=== PATIENT | female | born 1930 | race Caucasian/White ===

== ENCOUNTER 2017-12-03 16:33 | Inpatient (IN) ==
[2017-12-02 11:50] VITALS: BMI 26.6
--- NOTE | 2017-12-02 12:09 | XRay Report ---
EXAM: XR chest 2V COMPARISON: Chest x-ray dated 07/21/2016. HISTORY: chf,hypoxia,cad . FINDINGS: The articular opacities throughout both lung wilson which appear partially confluent on the right. There is no pneumothorax or sizable pleural effusion. The cardiac silhouette is stable. Redemonstration of postsurgical changes overlying the mediastinum. IMPRESSION: Diffuse pulmonary vascular congestion with superimposed atelectasis versus pneumonia within the right mid lung. .
[2017-12-02] MEDS: BUMETANIDE 2.5mg/10ml INJECTION IVP SCH ×2 (15:24→21:37)
[2017-12-02] MEDS: RANITIDINE 150 MG TABLET PO SCH (20:19)
[2017-12-02] MEDS: NAPROXEN 500 MG TABLET PO SCH (21:34)
[2017-12-02] MEDS: AMITRIPTYLINE 10 MG TABLET PO SCH (21:37)
[2017-12-02] MEDS: ATORVASTATIN 40 MG TABLET PO SCH (21:37)
[2017-12-02] MEDS: CEFEPIME 1 GM in NS 100 ML IV SCH (23:59)
[2017-12-03] MEDS: BUMETANIDE 2.5mg/10ml INJECTION IVP SCH ×3 (05:00→21:18)
[2017-12-03] MEDS: PANTOPRAZOLE 40 MG TABLET PO SCH (05:33)
--- NOTE | 2017-12-03 08:04 | XRay Report ---
Indication: CHF vs pneumonia XR chest 2V: Comparison: 12/02/2017 Technique: PA and lateral chest Findings: Patient continues to show patchy infiltrative changes bilaterally but more significantly to the right side. Heart remains prominent with previous cardiac surgery. No significant effusions are identified. Impression: 1. Mild cardiomegaly persists. Postoperative changes of previous cardiac surgery are identified. 2. Similar patchy infiltrative changes particularly involving the right chest probably representing underlying inflammatory or infectious etiology. 3. Follow-up after aggressive medical treatment recommended to make certain findings appropriately clear. .
[2017-12-03] MEDS: ALBUTEROL/IPRATROPIUM 2.5mg-0.5mg/3ml NEB AEROSOL SCH ×4 (08:13→18:49)
[2017-12-03] MEDS: RANITIDINE 150 MG TABLET PO SCH ×2 (08:29→18:20)
[2017-12-03] MEDS: AMIODARONE 200 MG TABLET PO SCH (08:32)
[2017-12-03] MEDS: NAPROXEN 500 MG TABLET PO SCH ×2 (08:33→18:22)
[2017-12-03] MEDS: CEFEPIME 1 GM in NS 100 ML IV SCH ×3 (08:41→23:33)
--- NOTE | 2017-12-03 14:56 | CT Scan Report ---
Indication: SOB with hypoxia, Right sided infiltrate CT chest w con: Comparison: Chest chest film earlier in the day Technique: Patient scanned from above the thoracic inlet to below the diaphragms after intravenous administration of 85 cc Omni 300 intravenous contrast with dose reduction imaging technology and reformatted sagittal and coronal image planes. Findings: Patient shows significant cardiac enlargement and bilateral pleural effusions and some central vascular congestion. Arteriosclerotic changes are seen in the coronary arteries. Prior cardiac surgery changes are appreciated. Patient shows extensive patchy infiltrative changes and both interstitial and alveolar edematous changes are suspected as well as possible superimposed pneumonic infiltrate in the right lower lobe and possibly in the right upper lobe for patient showed the most prominent areas of pulmonary interstitial density. Reformatted imaging of the spine showed mild rotoscoliosis but no acute fractures. Impression: 1. Patient showed combination of both underlying congestive changes with an enlarged heart and bilateral pleural effusions and increased interstitial markings as well as possible superimposed pneumonic infiltrates particularly prominent in the right base and to some extent in the right upper chest. 2. Aggressive diuretic therapy is suggested and whatever infiltrative changes persist after the patient's the heart failure is cleared would represent most likely infectious etiology. 3. Findings are discussed with ordering clinician when study provided. .
[~2017-12-03 16:33] MED LIST: CEFEPIME 2 GM in NS 100 ML IV ONE; CLOPIDOGREL 75 MG TABLET PO SCH; IOHEXOL 300mg/ml 75ml INJECTION ONE; NAPROXEN 500 MG TABLET PO PRN; NS FLUSH BAG 500ml IV PRN; SALINE FLUSH 10ml SYRINGE ONE
--- NOTE | 2017-12-03 16:33 | Internal Med Progress Note ---
Internal Medicine Subjective Patient seen and examined in her room. Questions answered. I reviewed her chest CT with the radiologist earlier today. She states that her breathing is no better from the time of admission. She has been on 2 mg of Bumex every 8 hours. I also started her on empiric antibiotics for community-acquired pneumonia. She is unable to keep her O2 sat above 86% on room air without activity. She denies chest pain and she is able to lie flat this afternoon to rest. No bowel movement since admission and she has mild abdominal discomfort. Exam Vital Signs: Temperature 97.1 F 12/03/17 16:00 Pulse Rate 81 12/03/17 15:28 Respiratory Rate 16 12/03/17 15:28 Blood Pressure 126/55 12/03/17 15:28 Pulse Oximetry 92 12/03/17 15:28 Telemetry Rhythm: Sinus Rhythm Height/Weight/BMI: Height 5 ft 7 in Weight 75.4 kg Body Mass Index 26.6 - Constitutional Present: mild distress, cooperative - Routine HEENT Exam Head: Present: normocephalic, atraumatic Eye: Present: EOMI, PERRL, conjunctivae pink. Absent: conjunctival icterus, scleral injection ENT: Present: mucous membranes moist, oropharynx clear, nares patent - Routine Neck Exam Present: supple, JVD. Absent: carotid bruit, lymphadenopathy, thyromegaly - Routine Chest/Breast/Axilla Exam Chest wall: Absent: tenderness Axillae: Absent: lymphadenopathy - Routine Respiratory Exam Present: dyspnea, rales (bilaterally). Absent: rhonchi, stridor - Routine Cardiovascular Exam Present: RRR, no murmur. Absent: S3, S4 - Routine Abdominal Exam Present: soft, tenderness, distended (mild) - Routine Extremities Exam Absent: cyanosis, clubbing, edema - Routine Skin Exam Present: intact. Absent: cyanosis, erythema, pallor, mottling, petechiae, urticaria, jaundice - Routine Neurological Exam Present: alert, oriented X3, CN II-XII intact - Routine Psychiatric Exam Present: normal affect, normal thought process, cooperative, good insight, good judgment. Absent: depressed, anxious Internal Medicine Results - Labs CBC & Chem 7: 12/03/17 04:24 12/03/17 04:24 Labs: Short CBC 12/03/17 Range/Units 04:24 WBC 15.8 H (4.5-11.0) T/MM3 Hgb 8.9 L (12-16) GM/DL Hct 28.2 L (36-46) % Plt Count 332 (130-400) T/MM3 BMP 12/03/17 04:24 Sodium 139 Potassium 4.2 Chloride 103 Carbon Dioxide 28 BUN 31.0 H Creatinine 1.1 Glucose 88 Calcium 8.4 Liver Function 12/03/17 Range/Units 04:24 Albumin 2.9 L (3.5-5.0) g/dL Urine 12/02/17 Range/Units 17:14 Urine Color Yellow (YELLOW) Urine Clarity Clear Urine pH 5.5 (5.0-8.0) Ur Specific [place] <=1.005 L (1.015-1.025) Urine Protein Negative (NEGATIVE) Urine Glucose (UA) Negative (NEGATIVE) - Imaging and Cardiology Chest x-ray Status: image reviewed by me CT scan - chest Status: image reviewed by me Progress Note-A&P - Time Spent With Patient Total time spent is greater than 50% in coordination of care (as documented) at patient's floor/unit and/or counseling patient: greater than 35 minutes (1) Respiratory distress, acute Status: Acute Current Visit: Yes (2) Hypoxia Status: Acute Current Visit: Yes (3) Acute on chronic congestive heart failure Status: Acute Current Visit: Yes (4) Pleural effusion Status: Acute Current Visit: Yes (5) Leukocytosis Status: Acute Current Visit: Yes (6) Coronary artery disease Status: Chronic Current Visit: Yes (7) Hypertension Status: Chronic Current Visit: Yes - Assessment and Plan Continue diuresis and IV antibiotics. She will probably need home oxygen as well as a nebulizer with medications on discharge. Hospital Course Summary Disclaimer: The visit summary below is not to be considered part of the above Progress Note.
[2017-12-03] MEDS ORDERED: CLOPIDOGREL 75 MG TABLET PO SCH (17:30)
[2017-12-03] MEDS: CLOPIDOGREL 75 MG TABLET PO SCH (18:21)
[2017-12-03] MEDS: AMITRIPTYLINE 10 MG TABLET PO SCH (21:18)
[2017-12-03] MEDS: ATORVASTATIN 40 MG TABLET PO SCH (21:18)
[2017-12-04] MEDS: BUMETANIDE 2.5mg/10ml INJECTION IVP SCH ×3 (04:53→21:15)
[2017-12-04] MEDS: PANTOPRAZOLE 40 MG TABLET PO SCH (06:10)
[2017-12-04] MEDS: ALBUTEROL/IPRATROPIUM 2.5mg-0.5mg/3ml NEB AEROSOL SCH ×4 (08:16→22:37)
[2017-12-04] MEDS: RANITIDINE 150 MG TABLET PO SCH ×2 (09:21→17:25)
[2017-12-04] MEDS: AMIODARONE 200 MG TABLET PO SCH (09:21)
[2017-12-04] MEDS: NAPROXEN 500 MG TABLET PO SCH ×2 (09:21→17:25)
[2017-12-04] MEDS: CEFEPIME 1 GM in NS 100 ML IV SCH ×2 (09:22→17:24)
--- NOTE | 2017-12-04 09:22 | XRay Report ---
Indication: CHF, right sided infiltrate Procedure: XR chest 2V: Encounter: Subsequent Comparison: Chest CT in radiographs of the previous day Technique: PA and lateral radiographs of the chest were obtained. Findings: Lungs and airways: Normal lung volumes. Mildly improved but persistent heterogeneous right greater than left pulmonary airspace consolidation. Pulmonary vasculature appears normal within the relatively clear left upper lung zone. Pleura: No obvious pleural effusion or pneumothorax. Heart and mediastinum: The cardiomediastinal silhouette and great vessels appear unchanged Osseous structures and soft tissues: No acute osseous abnormality is seen. Postoperative changes of median sternotomy. Impression: Mildly improved but persistent heterogeneous right greater than left pulmonary airspace consolidation. .
--- NOTE | 2017-12-04 17:06 | Internal Med Progress Note ---
Internal Medicine Subjective Patient seen and examined in her room. Questions answered. Michelle states that her breathing is probably worse today. Respiratory therapy attempted to have her ambulate in the jules and she did not do very well. She is still on oxygen and requiring in order to stay above 90% SaO2. Her chest x-ray appears mildly improved. Her white count is down a little bit more today. She does have chest pain with deep inspiration. Exam Vital Signs: Temperature 97.7 F 12/04/17 16:05 Pulse Rate 79 12/04/17 16:05 Respiratory Rate 18 12/04/17 16:05 Blood Pressure 132/66 12/04/17 16:05 Pulse Oximetry 93 12/04/17 16:05 Telemetry Rhythm: Sinus Rhythm Height/Weight/BMI: Height 5 ft 7 in Weight 74.5 kg Body Mass Index 26.6 - Constitutional Present: mild distress, cooperative - Routine HEENT Exam Head: Present: normocephalic, atraumatic Eye: Present: EOMI, PERRL, conjunctivae pink. Absent: conjunctival icterus, scleral injection ENT: Present: mucous membranes moist, oropharynx clear, nares patent - Routine Neck Exam Present: supple, JVD. Absent: lymphadenopathy, thyromegaly - Routine Chest/Breast/Axilla Exam Axillae: Absent: lymphadenopathy - Routine Respiratory Exam Present: accessory muscle use, dyspnea, rales (throughout) - Routine Cardiovascular Exam Present: RRR, no murmur. Absent: S3, S4 - Routine Abdominal Exam Present: soft, tenderness (right-sided), distended (mildly) - Routine Extremities Exam Absent: cyanosis, clubbing, edema - Routine Skin Exam Present: intact, pallor. Absent: erythema, mottling, petechiae, urticaria, jaundice - Routine Neurological Exam Present: alert, oriented X3, CN II-XII intact - Routine Psychiatric Exam Present: cooperative, good insight, good judgment, depressed Internal Medicine Results - Labs CBC & Chem 7: 12/04/17 04:42 12/04/17 04:42 Labs: Short CBC 12/04/17 Range/Units 04:42 WBC 14.5 H (4.5-11.0) T/MM3 Hgb 8.4 L (12-16) GM/DL Hct 26.9 L (36-46) % Plt Count 322 (130-400) T/MM3 BMP 12/04/17 04:42 Sodium 142 Potassium 4.7 Chloride 107 Carbon Dioxide 28 BUN 32.0 H Creatinine 1.2 Glucose 95 Calcium 8.7 Liver Function 12/04/17 Range/Units 04:42 Total Bilirubin 0.30 (0.20-1.30) MG/DL AST 29 (14-36) U/L ALT 26 (1-35) U/L Alkaline Phosphatase 142 H (38-126) U/L Albumin 2.8 L (3.5-5.0) g/dL - Imaging and Cardiology Chest x-ray Status: image reviewed by me Progress Note-A&P - Time Spent With Patient Total time spent is greater than 50% in coordination of care (as documented) at patient's floor/unit and/or counseling patient: greater than 35 minutes (1) Respiratory distress, acute Status: Acute Assessment and plan: No improvement. 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 Current Visit: Yes (3) Acute on chronic congestive heart failure Status: Acute Current Visit: Yes (4) Pleural effusion Status: Acute Current Visit: Yes (5) Leukocytosis Status: Acute Assessment and plan: Slowly improving Current Visit: Yes (6) Coronary artery disease Status: Chronic Current Visit: Yes (7) Hypertension Status: Chronic Current Visit: Yes (8) Anemia Status: Acute Assessment and plan: Consider transfusion Current Visit: Yes - Assessment and Plan Cardiology consult with Dr. Madeline Mendez including echocardiogram. I will start Solu-Medrol as well. Hospital Course Summary Disclaimer: The visit summary below is not to be considered part of the above Progress Note.
[2017-12-04] MEDS: CLOPIDOGREL 75 MG TABLET PO SCH (17:25)
[2017-12-04] MEDS: METHYLPREDNISOLONE SOD SUCC 125mg/2ml INJECTION IVP SCH ×2 (18:20→21:15)
[2017-12-04] MEDS: ATORVASTATIN 40 MG TABLET PO SCH (21:15)
[2017-12-04] MEDS: AMITRIPTYLINE 10 MG TABLET PO SCH (21:15)
[2017-12-05] MEDS: CEFEPIME 1 GM in NS 100 ML IV SCH ×3 (00:24→16:00)
--- NOTE | 2017-12-05 00:28 | Cardiology Consult Note ---
<Ana Humphries - Last Filed: 12/05/17 00:32> History of Present Illness Requesting physician: Javad Orozco Consult reason: chest pain, shortness of breath Chief complaint: chest pain and SOB History of present illness: This is an 87 year old patient known to Dr. Whaley with a history of CAD, Hx CABG in 1997, and stents after CABG. She had a heart cath [address] Emmanuel at [facility] and told she had 50% stenosis in 1 vessel that was unchanged from prior heart cath. In 07/2016 she fell and fractured hip and went into A-fib - new onset and started on amiodarone and Xarelto. She stopped taking Xarelto due to cost after her month of samples ran out and she restarted Plavix and ASA. She understands it is not effective to prevent stroke for A- fib. She also does not think she has been back in A-fib. She has cont to take Amiodarone and 11/2016 PFT was normal. Metoprolol was stopped at one time and when she was restarted on metoprolol her heart quit acting up. Additional history includes HTN, scoliosis s/p 2016 back surgery, hip fx s/p 2017 hip surgery; chronic back and hip pain on fenanyl patch, walks with a walker. fluid overload and been on torsemide for a while. The torsemide was decreased from 40mg to 20mg a while back due to [place], but when her SOB and swelling in legs and weight increased the torsemide increased back to 40mg daily. For the last 2 weeks she has experienced increasing SOB, PRADO, swelling in legs and weight gain of 7#. She could hardly make it to the bathroom due to SOB. When she would sit down and take deep breaths, she felt chest tightness around her chest. no radiation, some nausea at times. no diaphoresis. the chest tightness subsides after she catches her breath. She does not wear O2 at home. On 12/02/[address] Diaz and and due to her severe SOB with hypoxia, she was admitted to [facility]. She thought her SOB was due to her chronic pain issues and scoliosis. She is sad about her condition. She is a good historian. Review of Systems - Constitutional Constitutional: Present: fatigue, weakness, weight gain, other (constant pain all over. ). Absent: chills, fever(s) - EENMT Eyes: Absent: change in vision Balance: Present: other (unsteady gait due to back pain and scoliosis) Mouth/Throat: Absent: sore throat - Cardiovascular Cardiovascular: Present: chest pain (tightness around chest with deep breaths. ) , dyspnea on exertion (severe), edema (some per pt. not presently. ). Absent: palpitations, syncope, orthopnea Vascular: Absent: pedal edema, varicosities - Respiratory Respiratory: Present: dyspnea, dyspnea on exertion, pain on inspiration. Absent : cough, hemoptysis - Gastrointestinal Gastrointestinal: Present: nausea (occassional ). Absent: vomiting - Musculoskeletal Musculoskeletal: Present: back pain, deformity, limited range of motion, muscle weakness - Integumentary/Breasts Integumentary: Absent: rash - Neurological Neurological: Present: abnormal gait, weakness. Absent: dizziness - Psychiatric Psychiatric: Present: depression. Absent: anxiety - Endocrine Endocrine: Absent: palpitations - Hematologic/Lymphatic Hematologic/Lymphatic: Absent: easy bleeding PFSH Patient Stated Medical History Cataracts Yes Hearing Loss Yes Macular Degeneration Yes: tiny start Cardiac Arrhythmia Yes: A-fib Congestive Heart Failure Yes Hypertension Yes Hypotension Yes Gastroesophageal Reflux Yes: little Disease Ulcer Yes: past Hx Incontinence Yes Hx Renal Disease No Osteoarthritis Yes CAD Hx CABG 1997 Surgical History: CABG in 1997 and coronary stents after. Family History: Mother - colon cancer Sibling - heart disease - Social History Smoking status: Never smoker second hand exposure: Yes (for many years. ) Substance use type: does not use Alcohol intake frequency: does not drink Housing: house Household members: other (spouse in long term due to dementia and stroke. ) Current occupational status: retired Does patient use chewing tobacco?: No Current residence: Apartment/Private Home Medications Home Medications Medication Instructions Recorded Confirmed Type Atorvastatin [Lipitor] 40 mg PO DAILY #0 08/21/11 12/02/17 History Calcium Carb/Magnesium Oxid/D3 2 tab PO DAILY #0 08/21/11 12/02/17 History [Calcium Magnesium + D Tablet] Ubidecarenone [Co Q-10] 200 mg PO DAILY #0 08/21/11 12/02/17 History Vitamin B Complex 1 cap PO DAILY #0 08/21/11 12/02/17 History Pantoprazole Sodium 40 mg PO DAILY #0 02/11/17 06/25/18 History raNITIdine HCl [Zantac] 150 mg PO BID #0 07/21/16 12/02/17 History fentaNYL [Fentanyl] 1 patch TOP Q3D 30 Days #10 patch 07/25/16 12/02/17 Rx Docusate Sodium [Colace] 1 cap PO BID #0 cap 07/26/16 12/02/17 History Amitriptyline HCl 10 mg PO HS 30 Days #30 tab 08/08/16 12/02/17 Rx Metoprolol Tartrate 25 mg PO BIDWM #60 tab 08/08/16 12/02/17 Rx fentaNYL [Fentanyl] 1 removal TD Q3D #30 08/08/16 12/02/17 Rx Potassium Chloride [Klor-Con M10] 20 meq PO DAILY #60 tab.er.prt 12/09/17 Rx PredniSONE [Deltasone 20 mg] 40 mg PO WB #25 tab 12/09/17 Rx Torsemide [Demadex] 20 mg PO DAILY #30 tab 12/09/17 Rx Allergies Allergy/AdvReac Type Severity Reaction Status Date / Time hydrocodone Allergy Intermediate HIVES Verified 12/02/17 12:29 oxycodone Allergy Intermediate HIVES Verified 12/02/17 12:29 tramadol Allergy Intermediate HIVES Verified 12/02/17 12:29 acetaminophen Allergy Mild HIVES Verified 12/02/17 12:29 Exam Vital signs: Temperature 97.7 F 12/04/17 23:25 Pulse Rate 82 12/04/17 23:25 Respiratory Rate 18 12/04/17 23:25 Blood Pressure 146/59 H 12/04/17 23:25 Pulse Oximetry 91 12/04/17 23:25 - Constitutional no acute distress, well nourished, well developed, cooperative - Routine HEENT Exam Head: Present: normocephalic, atraumatic Eye: Present: normal accommodation, conjunctivae pink ENT: Present: mucous membranes moist - Routine Neck Exam Absent: JVD, carotid bruit - Routine Chest/Breast/Axilla Exam Chest wall: Absent: tenderness - Routine Respiratory Exam Present: crackles (right side) Comments: no SOB while lying flat in bed. - Routine Cardiovascular Exam Present: RRR, murmur (06/15) - Routine Abdominal Exam Present: soft, normoactive bowel sounds, non tender - Routine Extremities Exam Present: no edema, pulses intact - Routine Back/Spine/Pelvis Exam Back/Spine: Present: scoliosis, pain with rotation - Routine Skin Exam Present: intact, dry, warm, normal turgor - Routine Neurological Exam Present: alert, oriented X3, moving all extremities, vision grossly intact, hearing grossly intact - Routine Psychiatric Exam Present: normal affect, normal thought process, cooperative, good insight, good judgment Results 12/04/17 04:42 12/04/17 04:42 Laboratory Last Values WBC 14.5 T/MM3 (4.5-11.0) H 12/04/17 04:42 RBC 3.07 M/MM3 (4.00-5.20) L 12/04/17 04:42 Hgb 8.4 GM/DL (12-16) L 12/04/17 04:42 Hct 26.9 % (36-46) L 12/04/17 04:42 MCV 87.6 UM3 (80-100) 12/04/17 04:42 MCH 27.4 UUG (26-34) 12/04/17 04:42 MCHC 31.2 GM/DL (31-37) 12/04/17 04:42 RDW Std Deviation 45.1 FL (36.9-50.2) 12/04/17 04:42 Plt Count 322 T/MM3 (130-400) 12/04/17 04:42 MPV 8.9 UM3 (9.4-12.4) L 12/04/17 04:42 Immature Gran % (Auto) 0.4 % (0.0-0.5) 12/04/17 04:42 Neut % (Auto) 76.1 % (33-66) H 12/04/17 04:42 Lymph % (Auto) 6.4 % (23-45) L 12/04/17 04:42 Perkins % (Auto) 7.6 % (0-9.0) 12/04/17 04:42 Eos % (Auto) 9.3 % (0-4) H 12/04/17 04:42 Baso % (Auto) 0.2 % (0-2) 12/04/17 04:42 Neut # (Auto) 11.0 T/MM3 (1.8-7.7) H 12/04/17 04:42 Lymph # (Auto) 0.9 T/MM3 (1-4.8) L 12/04/17 04:42 Perkins # (Auto) 1.1 T/MM3 (0-0.8) H 12/04/17 04:42 Eos # (Auto) 1.4 T/MM3 (0-0.5) H 12/04/17 04:42 Baso # (Auto) 0.0 T/MM3 (0-0.2) 12/04/17 04:42 Abs Immat Gran (auto) 0.06 T/MM3 (0.00-0.03) H 12/04/17 04:42 Neutrophils % (Manual) 75.0 % (33-66) H 12/03/17 04:24 Band Neutrophils % 1.0 % (0-6) 12/02/17 12:08 Lymphocytes % (Manual) 9.0 % (23-45) L 12/03/17 04:24 Monocytes % (Manual) 4.0 % (0-9.0) 12/03/17 04:24 Eosinophils % (Manual) 12.0 % (0-4) H 12/03/17 04:24 Neutrophils # (Manual) 11.9 T/MM3 (1.8-7.7) H 12/03/17 04:24 Band Neutrophils # 0.2 T/MM3 12/02/17 12:08 Lymphocytes # (Manual) 1.4 T/MM3 (1-4.8) 12/03/17 04:24 Monocytes # (Manual) 0.6 T/MM3 (0-0.8) 12/03/17 04:24 Eosinophils # (Manual) 1.9 T/MM3 (0-0.5) H 12/03/17 04:24 Hypochromasia 1+ 12/02/17 12:08 Ovalocytes 1+ 12/03/17 04:24 Helmet Cells 1+ 12/03/17 04:24 RBC Morph Comment Abnormal 12/03/17 04:24 Turbidity < 20 (0-20) 12/04/17 04:42 Sodium 142 MEQ/L (136-146) 12/04/17 04:42 Potassium 4.7 MEQ/L (3.6-5) 12/04/17 04:42 Chloride 107 MEQ/L (98-107) 12/04/17 04:42 Carbon Dioxide 28 MEQ/L (22-30) 12/04/17 04:42 Anion Gap 7 meq/L (5-15) 12/04/17 04:42 BUN 32.0 MG/DL (7-17) H 12/04/17 04:42 Creatinine 1.2 mg/dL (0.7-1.2) 12/04/17 04:42 GFR Calculation 42 12/04/17 04:42 BUN/Creatinine Ratio 27 RATIO (6-26) H 12/04/17 04:42 Glucose 95 MG/DL (65-110) 12/04/17 04:42 Calculated Osmolality 280 MOSM/KG (261-280) 12/04/17 04:42 Calcium 8.7 MG/DL (8.4-10.2) 12/04/17 04:42 Phosphorus 3.4 MG/DL (2.5-4.5) 12/03/17 04:24 Total Bilirubin 0.30 MG/DL (0.20-1.30) 12/04/17 04:42 Icterus Index < 2 (0-7) 12/04/17 04:42 AST 29 U/L (14-36) 12/04/17 04:42 ALT 26 U/L (1-35) 12/04/17 04:42 Alkaline Phosphatase 142 U/L (38-126) H 12/04/17 04:42 Troponin I < 0.012 ng/ml (0-0.12) 12/02/17 12:08 NT-Pro-B Natriuret Pep 43318 pg/mL (0-175) H 12/04/17 04:42 Total Protein 5.5 g/dL (6.3-8.2) L 12/04/17 04:42 Albumin 2.8 g/dL (3.5-5.0) L 12/04/17 04:42 Globulin 2.7 G/DL (2.4-3.6) 12/04/17 04:42 Albumin/Globulin Ratio 1.0 RATIO (1.1-2.2) L 12/04/17 04:42 TSH 1.16 mIU/L (0.47-4.68) 12/02/17 12:08 Specimen Hemolysis < 15 (0-25) 12/04/17 04:42 Ur Collection Type Urine, void-cc/notcc 12/02/17 17:14 Urine Color Yellow (YELLOW) 12/02/17 17:14 Urine Clarity Clear 12/02/17 17:14 Urine pH 5.5 (5.0-8.0) 12/02/17 17:14 Ur Specific Hope <=1.005 (1.015-1.025) L 12/02/17 17:14 Urine Protein Negative (NEGATIVE) 12/02/17 17:14 Urine Glucose (UA) Negative (NEGATIVE) 12/02/17 17:14 Urine Ketones Negative (NEGATIVE) 12/02/17 17:14 Urine Occult Blood Negative (NEGATIVE) 12/02/17 17:14 Urine Nitrate Negative (NEGATIVE) 12/02/17 17:14 Urine Bilirubin Negative (NEGATIVE) 12/02/17 17:14 Urine Urobilinogen 0.2 EU/DL (NORMAL) 12/02/17 17:14 Ur Leukocyte Esterase 1+ (NEGATIVE) A 12/02/17 17:14 Urine RBC None seen /HPF (0-3) 12/02/17 17:14 Urine WBC 20-30 /HPF (0-5) H 12/02/17 17:14 Urine Bacteria 2+ (NEGATIVE) H 12/02/17 17:14 Patient Weight 12/05/17 06:59 Weight 164 lb 3.91 oz - Imaging and Cardiology Echo: pending Imaging & Cardiology Narrative: Date of Exam: 12/04/17 Ordering Provider: Javad Orozco DO Type of Exam(s): XR chest 2V Reason for Exam(s): CHF, right sided infiltrate Indication: CHF, right sided infiltrate Findings: Lungs and airways: Normal lung volumes. Mildly improved but persistent heterogeneous right greater than left pulmonary airspace consolidation. Pulmonary vasculature appears normal within the relatively clear left upper lung zone. Pleura: No obvious pleural effusion or pneumothorax. Heart and mediastinum: The cardiomediastinal silhouette and great vessels appear unchanged Osseous structures and soft tissues: No acute osseous abnormality is seen. Postoperative changes of median sternotomy. Impression: Mildly improved but persistent heterogeneous right greater than left pulmonary airspace consolidation. - EKG Interpretation EKG: sinus rhythm (12/02/2017 ECG: SR, 1st AVB, possible septal infarct, age undetermined, mod IVCD. ) Assessment and Plan - Assessment and Plan (1) Acute on chronic congestive heart failure Status: Acute (2) Coronary artery disease Status: Chronic (3) Hypoxia Status: Acute (4) Pleural effusion Status: Acute (5) Leukocytosis Status: Acute (6) Hypertension Status: Chronic (7) Anemia Status: Acute (8) PAF (paroxysmal atrial fibrillation) Status: Chronic - Assessment and Plan A/C CHF: echo to determine type. - BNP: 76241 - CXR: right sided consolidation - symptoms: SOB, and worsening PRADO. no edema now. Laying flat in bed. - Receiving Bumex 2mg q 8hrs for good U/O. On 12/04 U/O was 2150. On 12/05 U /O 1400 so far. but cont to have SOB and PRADO. - Monitor I/O wts, lytes - ok and renal function - Cr and BUN ok. - likely due to pleural infiltrates. CAD Hx CABG - last heart cath: 50% CAD in 1 vessel per pt report. I will look up heart cath at and fax. - cont ASA and Plavix, unless we start anticoagulation for A-fib. Chest pain - tightness around chest with deep breaths after PRADO after walking. - ECG: no acute ischemia - 12/02 trop neg - check trop in am - unlikely cardiac. PAF - In SR since admit. - cont amiodarone. consider other anticoagulation - she does not have prescription insurance. can not afford Xarelto. HTN - cont metoprolol Leukocytosis - possible pneumonia, UTI. on ABX Acute resp distress and hypoxia - On 2LNC. started steroids per Dr. Diaz. DSLD - cont statin and CoQ10 Chronic back pain- cont pain meds per Dr. Diaz. Hospital Course Summary Disclaimer: The visit summary below is not to be considered part of the above Progress Note. <Gurwinder Whaley - Last Filed: 12/12/17 13:36> [facility] Patient Stated Medical History Cataracts Yes Hearing Loss Yes Macular Degeneration Yes: tiny start Cardiac Arrhythmia Yes: A-fib Congestive Heart Failure Yes Hypertension Yes Hypotension Yes Gastroesophageal Reflux Yes: little Disease Ulcer Yes: past Hx Incontinence Yes Hx Renal Disease No Osteoarthritis Yes Exam Vital signs: Temperature 98.7 F 12/09/17 15:56 Pulse Rate 96 12/09/17 16:00 Respiratory Rate 20 12/09/17 15:56 Blood Pressure 143/65 H 12/09/17 15:56 Pulse Oximetry 95 12/09/17 15:56 Results 12/09/17 04:58 12/09/17 04:58 Assessment and Plan - Attestation Attestation Narrative: 12/12/17 13:36 Recommendation After examining the patient I agree with the above assessment. I am involved in the formulation of the patient's plan of care. - Assessment and Plan (1) Hypoxia Status: Acute (2) Acute on chronic congestive heart failure Status: Acute (3) Pleural effusion Status: Acute (4) Leukocytosis Status: Acute (5) Coronary artery disease Status: Chronic (6) Hypertension Status: Chronic (7) Anemia Status: Acute (8) PAF (paroxysmal atrial fibrillation) Status: Chronic Hospital Course Summary Disclaimer: The visit summary below is not to be considered part of the above Progress Note. Addendum entered and electronically signed by Rica Barroso APRN 12/05/17 13: 00: Thank you Dr. Orozco for allowing us to participate in the care of this patient. We will follow along with you.
[2017-12-05] MEDS: METHYLPREDNISOLONE SOD SUCC 125mg/2ml INJECTION IVP SCH ×4 (03:43→21:26)
[2017-12-05] MEDS: PANTOPRAZOLE 40 MG TABLET PO SCH (05:55)
[2017-12-05] MEDS: BUMETANIDE 2.5mg/10ml INJECTION IVP SCH ×3 (05:55→21:26)
[2017-12-05] MEDS: ALBUTEROL/IPRATROPIUM 2.5mg-0.5mg/3ml NEB AEROSOL SCH ×4 (06:51→21:08)
[2017-12-05] MEDS: NAPROXEN 500 MG TABLET PO SCH ×2 (08:39→17:18)
[2017-12-05] MEDS: RANITIDINE 150 MG TABLET PO SCH ×2 (08:40→17:18)
[2017-12-05] MEDS: AMIODARONE 200 MG TABLET PO SCH (08:40)
--- NOTE | 2017-12-05 09:11 | XRay Report ---
Indication: SOB, hypoxia, chf, right sided infiltrate PROCEDURE: XR chest 2V: Encounter: Initial Comparison: 12/04/2017 Findings: There is moderate diffuse somewhat patchy interstitial parenchymal changes that are asymmetrically increased on the right and similar to prior exam. No definite lobar consolidation or pleural effusion. The patient is status post median sternotomy. Trachea is midline. There is mild tortuosity of the descending thoracic aorta. There is prominence of the cardiac silhouette. Impression: Relatively stable acute and chronic appearing interstitial lung disease asymmetrically increased on the right without lobar consolidation or pleural effusion. .
[2017-12-05] MEDS: CLOPIDOGREL 75 MG TABLET PO SCH (17:19)
[2017-12-05] MEDS: AMITRIPTYLINE 10 MG TABLET PO SCH (21:26)
[2017-12-05] MEDS: ATORVASTATIN 40 MG TABLET PO SCH (21:27)
[2017-12-06] MEDS: CEFEPIME 1 GM in NS 100 ML IV SCH ×3 (00:19→16:39)
[2017-12-06] MEDS: METHYLPREDNISOLONE SOD SUCC 125mg/2ml INJECTION IVP SCH ×4 (04:00→20:04)
[2017-12-06] MEDS: PANTOPRAZOLE 40 MG TABLET PO SCH (05:53)
[2017-12-06] MEDS: BUMETANIDE 2.5mg/10ml INJECTION IVP SCH ×2 (05:53→13:34)
[2017-12-06] MEDS: ALBUTEROL/IPRATROPIUM 2.5mg-0.5mg/3ml NEB AEROSOL SCH ×4 (07:25→19:40)
[2017-12-06] MEDS: NAPROXEN 500 MG TABLET PO SCH ×2 (09:10→18:05)
[2017-12-06] MEDS: RANITIDINE 150 MG TABLET PO SCH ×2 (09:11→18:05)
--- NOTE | 2017-12-06 09:46 | Echocardiogram ---
DATE OF PROCEDURE: December 04, 2017 This is a two-dimensional echo with spectral Doppler, color-flow and M-mode. It was obtained in a patient with congestive heart failure, hypoxia and shortness of breath. Left atrium is dilated. Left ventricular end-diastolic dimension is increased. Left ventricle wall thickness is normal. LV systolic function is mildly reduced with ejection fraction of about 45%. Right atrium is dilated. Right ventricle is dilated. Aortic root dimension is normal. Mitral annulus is calcified. Mitral valve leaflets are normal with [id number] mitral regurgitation. Aortic valve shows mild fibrocalcific changes with no stenosis. [id number] aortic insufficiency is present. Tricuspid valve shows severe tricuspid regurgitation with [id number] pulmonary hypertension with estimated pulmonary artery systolic pressure of 62. Pulmonary valve shows mild pulmonary insufficiency. There is no pericardial effusion. IMPRESSION 1. Mild global hypokinesia with ejection fraction of about 45%. 2. Four-chamber dilation. 3. Mitral annulus calcification with [id number] mitral regurgitation. 4. Mild aortic sclerosis with [id number] aortic insufficiency. 5. Severe tricuspid regurgitation with moderate to severe pulmonary hypertension with estimated pulmonary artery systolic pressure of 62. 6. Mild pulmonary insufficiency. MTDD
[2017-12-06] MEDS ORDERED: MORPHINE SULFATE 4mg INJECTION IVP ONE (13:42)
--- NOTE | 2017-12-06 16:01 | Cardiology Progress Note ---
<Rica Barroso M - Last Filed: 12/06/17 16:42> Subjective Principal diagnosis: CHF Interval history: Michelle is seen in follow up for A/C CHF. She is sitting up in the recliner having a nebulizer treatment, in no distress. She denies chest pain, pressure, palpitations, dizziness or lightheadedness. Exam Vital signs: Temperature 96.5 F L 12/06/17 07:15 Pulse Rate 77 12/06/17 15:40 Respiratory Rate 20 12/06/17 15:50 Blood Pressure 149/69 H 12/06/17 15:40 Pulse Oximetry 95 12/06/17 15:50 Inpatient Medications: Generic Name Dose Route Start Last Admin Trade Name Freq PRN Reason Stop Dose Admin Albuterol/Ipratropium 3 ml 12/03/17 07:00 12/06/17 15:50 Duoneb AEROSOL 3 ml RTQID JEVON Administration Amitriptyline HCl 10 mg 12/02/17 21:00 12/05/17 21:26 Elavil PO 10 mg HS JEVON Administration Atorvastatin Calcium 40 mg 12/02/17 21:00 12/05/17 21:27 Lipitor PO 40 mg HS JEVON Administration Bumetanide 2 mg 12/02/17 13:30 12/06/17 13:34 Bumex 2.5 Mg/10 Ml Inj IVP 2 mg Q8H JEVON Administration Clopidogrel Bisulfate 75 mg 12/03/17 17:30 12/05/17 17:19 Plavix PO 75 mg 1730 JEVON Administration Fentanyl 12 mcg 12/03/17 09:00 12/06/17 08:56 Duragesic Patch TD 12 mcg Q3D JEVON Administration Fentanyl Citrate 1 removal 12/03/17 09:00 12/06/17 09:14 Duragesic Patch Removal TD 1 removal Q3D JEVON Administration Cefepime HCl 1 gm/ Sodium 100 mls @ 200 mls/hr 12/03/17 00:30 12/06/17 09:51 Chloride IV Infused Q8H JEVON Infusion Vancomycin HCl 1,000 mg/ 250 mls @ 250 mls/hr 12/02/17 16:30 12/06/17 05:06 Sodium Chloride IV Infused Q12H JEVON Infusion Methylprednisolone Sodium Succinate 125 mg 12/04/17 17:15 12/06/17 08:59 Solu-Medrol IVP 125 mg Q6HR JEVON Administration Metoprolol Tartrate 25 mg 12/03/17 17:30 12/06/17 09:11 Lopressor PO 25 mg 0800,1730 JEVON Administration Naproxen 500 mg 12/03/17 17:30 12/06/17 09:10 Naprosyn 500 Mg PO 500 mg 0900,1730 JEVON Administration Pantoprazole Sodium 40 mg 12/03/17 06:30 12/06/17 05:53 Protonix Tab PO 40 mg ACB JEVON Administration Potassium Chloride 20 meq 12/02/17 16:00 12/06/17 09:11 K-Dur 10 Meq Tablet PO 20 meq Q8H JEVON Administration Ranitidine HCl 150 mg 12/03/17 17:30 12/06/17 09:11 Zantac PO 150 mg 09,0 JEVON Administration Sodium Chloride 500 ml 12/02/17 19:56 12/06/17 04:02 Normal Saline IV 500 ml PRN PRN Administration Discontinued Medications Generic Name Dose Route Start Last Admin Trade Name Freq PRN Reason Stop Dose Admin Amiodarone HCl 200 mg 12/03/17 09:00 12/05/17 08:40 Pacerone PO 200 mg DAILY JEVON Administration Clopidogrel Bisulfate 75 mg 12/02/17 20:00 12/02/17 20:19 Plavix PO 75 mg PM JEVON Administration Clopidogrel Bisulfate 75 mg 12/03/17 17:30 Plavix PO PM JEVON Cefepime HCl 2 gm/ Sodium 100 mls @ 200 mls/hr 12/02/17 16:21 12/02/17 17:55 Chloride IV 12/02/17 16:50 Infused O ONE Infusion Metoprolol Tartrate 25 mg 12/02/17 21:00 12/03/17 08:32 Lopressor PO 25 mg Q12HR JEVON Administration Morphine Sulfate 2 mg 12/06/17 13:42 12/06/17 14:45 Morphine Sulfate Inj IVP 12/06/17 13:43 2 mg O ONE Administration Naproxen 500 mg 12/02/17 20:38 12/02/17 20:40 Naprosyn 500 Mg PO 500 mg BID PRN Administration Pain Naproxen 500 mg 12/02/17 21:00 12/03/17 08:33 Naprosyn 500 Mg PO 500 mg BID JEVON Administration Ranitidine HCl 150 mg 12/02/17 21:00 12/03/17 08:29 Zantac PO 150 mg BID JEVON Administration - Constitutional no acute distress, well nourished, cooperative - Routine HEENT Exam Head: Present: normocephalic ENT: Present: mucous membranes moist - Routine Neck Exam Absent: JVD, carotid bruit - Routine Chest/Breast/Axilla Exam Chest wall: Absent: tenderness - Routine Respiratory Exam Present: dyspnea, rales (R>L) - Routine Cardiovascular Exam Present: RRR, murmur (I/) - Routine Abdominal Exam Present: soft, non tender - Routine Extremities Exam Present: edema - Routine Skin Exam Present: intact, dry, warm - Routine Neurological Exam Present: alert, oriented X3 - Routine Psychiatric Exam Present: normal affect, normal thought process Results 12/06/17 04:21 12/05/17 04:31 Cardiac Enzymes 12/06/17 Range/Units 04:21 Troponin I < 0.012 (0-0.12) ng/ml CBC 12/06/17 Range/Units 04:21 WBC 27.0 H* D (4.5-11.0) T/MM3 RBC 3.16 L (4.00-5.20) M/MM3 Hgb 8.7 L (12-16) GM/DL Hct 27.3 L (36-46) % Plt Count 390 (130-400) T/MM3 Neut # (Auto) Not performed Lymph # (Auto) Not performed [place] # (Auto) Not performed Eos # (Auto) Not performed Baso # (Auto) Not performed Intake and Output 12/06/17 12/06/17 12/06/17 06:59 14:59 22:59 Intake Total 350 / 350 790 / 790 300 / 300 Output Total 1050 / 1050 Balance 350 / 350 -260 / -260 300 / 300 Intake: IV 350 / 350 100 / 100 Cefepime 1 gm In Ns 100 ml @ 100 / 100 100 / 100 200 mls/hr IV Q8H JEVON Rx#: [id number] Vancomycin 1,000 mg In NS 250ml 250 / 250 250 ml @ 250 mls/hr IV Q12H JEVON Rx#:[id number] Oral 690 / 690 300 / 300 Output: Urine 1050 / 1050 Other: Urine Appearance Clear Urine Color Yellow Weight 164 lb 0.383 oz Patient Weight 12/07/17 06:59 Weight 164 lb 0.383 oz Assessment and Plan - Assessment and Plan (1) Hypoxia Status: Acute (2) Acute on chronic congestive heart failure Status: Acute (3) Pleural effusion Status: Acute (4) Leukocytosis Status: Acute (5) Coronary artery disease Status: Chronic (6) Hypertension Status: Chronic (7) Anemia Status: Acute (8) PAF (paroxysmal atrial fibrillation) Status: Chronic - Assessment and Plan 12/05/17 A/C CHF: echo to determine type. - BNP: 84513 - CXR: right sided consolidation - symptoms: SOB, and worsening PRADO. no edema now. Laying flat in bed. - Receiving Bumex 2mg q 8hrs for good U/O. On 12/04 U/O was 2150. On 12/05 U /O 1400 so far. but cont to have SOB and PRADO. - Monitor I/O wts, lytes - ok and renal function - Cr and BUN ok. - likely due to pleural infiltrates. CAD Hx CABG - last heart cath: 50% CAD in 1 vessel per pt report. I will look up heart cath at [facility] and fax. - cont ASA and Plavix, unless we start anticoagulation for A-fib. Chest pain - tightness around chest with deep breaths after PRADO after walking. - ECG: no acute ischemia - 12/02 trop neg - check trop in am - unlikely cardiac. PAF - In SR since admit. - cont amiodarone. consider other anticoagulation - she does not have prescription insurance. can not afford Xarelto. HTN - cont metoprolol Leukocytosis - possible pneumonia, UTI. on ABX Acute resp distress and hypoxia - On 2LNC. started steroids per Dr. Diaz. DSLD - cont statin and CoQ10 Chronic back pain- cont pain meds per Dr. Diaz. 12/06/17 BMP and Mag please Telemetry please (remains sinus but stopped Amiodarone) Hospital Course Summary Disclaimer: The visit summary below is not to be considered part of the above Progress Note. <Gurwinder Whaley - Last Filed: 12/19/17 16:27> Exam Vital signs: Temperature 98.7 F 12/09/17 15:56 Pulse Rate 96 12/09/17 16:00 Respiratory Rate 20 12/09/17 15:56 Blood Pressure 143/65 H 07/02/18 15:56 Pulse Oximetry 95 12/09/17 15:56 Inpatient Medications: Discontinued Medications Generic Name Dose Route Start Last Admin Trade Name Zhou PRN Reason Stop Dose Admin Albuterol/Ipratropium 3 ml 12/03/17 07:00 12/09/17 15:20 Duoneb AEROSOL 3 ml RTQID JEVON Administration Amiodarone HCl 200 mg 12/03/17 09:00 12/05/17 08:40 Pacerone PO 200 mg DAILY JEVON Administration Amitriptyline HCl 10 mg 12/02/17 21:00 12/05/17 21:26 Elavil PO 10 mg HS JEVON Administration Atorvastatin Calcium 40 mg 12/02/17 21:00 12/08/17 20:47 Lipitor PO 40 mg HS JEVON Administration Bumetanide 2 mg 12/02/17 13:30 12/06/17 13:34 Bumex 2.5 Mg/10 Ml Inj IVP 2 mg Q8H JEVON Administration Clopidogrel Bisulfate 75 mg 12/02/17 20:00 12/02/17 20:19 Plavix PO 75 mg PM JEVON Administration Clopidogrel Bisulfate 75 mg 12/03/17 17:30 Plavix PO PM JEVON Clopidogrel Bisulfate 75 mg 12/03/17 17:30 12/09/17 17:24 Plavix PO 75 mg 1730 JEVON Administration Fentanyl 12 mcg 12/03/17 09:00 12/09/17 08:51 Duragesic Patch TD 12 mcg Q3D JEVON Administration Fentanyl Citrate 1 removal 12/03/17 09:00 12/09/17 16:30 Duragesic Patch Removal TD 1 removal Q3D JEVON Administration Cefepime HCl 2 gm/ Sodium 100 mls @ 200 mls/hr 12/02/17 16:21 12/02/17 17:55 Chloride IV 12/02/17 16:50 Infused O ONE Infusion Cefepime HCl 1 gm/ Sodium 100 mls @ 200 mls/hr 12/03/17 00:30 12/06/17 17:29 Chloride IV Infused Q8H JEVON Infusion Vancomycin HCl 1,000 mg/ 250 mls @ 250 mls/hr 12/02/17 16:30 12/06/17 18:30 Sodium Chloride IV Infused Q12H JEVON Infusion Methylprednisolone Sodium Succinate 125 mg 12/04/17 17:15 12/06/17 20:04 Solu-Medrol IVP 12/07/17 02:55 125 mg Q6HR JEVON Administration Methylprednisolone Sodium Succinate 62.5 mg 12/07/17 03:00 12/08/17 09:26 Solu-Medrol IVP 62.5 mg Q6HR JEVON Administration Metoprolol Tartrate 25 mg 12/02/17 21:00 12/03/17 08:32 Lopressor PO 25 mg Q12HR JEVON Administration Metoprolol Tartrate 25 mg 12/03/17 17:30 12/09/17 17:24 Lopressor PO 25 mg 0800,1730 JEVON Administration Morphine Sulfate 2 mg 12/06/17 13:42 12/06/17 14:45 Morphine Sulfate Inj IVP 12/06/17 13:43 2 mg O ONE Administration Naproxen 500 mg 12/02/17 20:38 12/02/17 20:40 Naprosyn 500 Mg PO 500 mg BID PRN Administration Pain Naproxen 500 mg 12/02/17 21:00 12/03/17 08:33 Naprosyn 500 Mg PO 500 mg BID JEVON Administration Naproxen 500 mg 12/03/17 17:30 12/06/17 18:05 Naprosyn 500 Mg PO 500 mg 0900,1730 JEVON Administration Pantoprazole Sodium 40 mg 12/03/17 06:30 12/09/17 06:28 Protonix Tab PO 40 mg ACB JEVON Administration Potassium Chloride 20 meq 12/02/17 16:00 12/06/17 18:04 K-Dur 10 Meq Tablet PO 20 meq Q8H JEVON Administration Potassium Chloride 20 meq 12/07/17 08:00 Micro-K 10 Meq Capsule PO WB JEVON Prednisone 40 mg 12/08/17 12:31 12/09/17 08:49 Deltasone 20 Mg PO 40 mg WB JEVON Administration Ranitidine HCl 150 mg 12/02/17 21:00 12/03/17 08:29 Zantac PO 150 mg BID JEVON Administration Ranitidine HCl 150 mg 12/03/17 17:30 12/09/17 17:25 Zantac PO 150 mg 0900,1730 JEVON Administration Sodium Chloride 500 ml 12/02/17 19:56 12/06/17 04:02 Normal Saline IV 500 ml PRN PRN Administration Results 12/09/17 04:58 12/09/17 04:58 Assessment and Plan - Assessment and Plan (1) Hypoxia Status: Acute (2) Acute on chronic congestive heart failure Status: Acute (3) Pleural effusion Status: Acute (4) Leukocytosis Status: Acute (5) Coronary artery disease Status: Chronic (6) Hypertension Status: Chronic (7) Anemia Status: Acute (8) PAF (paroxysmal atrial fibrillation) Status: Chronic - Attestation Attestation Narrative: 12/19/17 16:27 Recommendation After examining the patient I agree with the above assessment. I am involved in the formulation of the patient's plan of care. Hospital Course Summary Disclaimer: The visit summary below is not to be considered part of the above Progress Note.
[2017-12-06] MEDS: CLOPIDOGREL 75 MG TABLET PO SCH (18:04)
--- NOTE | 2017-12-06 18:08 | Internal Med Progress Note ---
Internal Medicine Subjective Patient seen and examined in her room. Family at the bedside questions answered. Michelle appears to be improving with the addition of IV Solu-Medrol. She does complain of shakiness and jitteriness with the steroids. Her breathing is some what improved. She states she can now walk to the bathroom and back without feeling like she is going to collapse. She also does not have the tightness in her chest. The echocardiogram demonstrated elevated pulmonary pressures so I gave her 2 mg of morphine this afternoon which did benefit her. She was able to breathe easier and she had less tightness in her chest. At this point I believe that she had some element of congestive heart failure but the primary cause of her shortness of breath is a pneumonitis possibly secondary to amiodarone. This has been stopped Exam Vital Signs: Temperature 96.5 F L 12/06/17 07:15 Pulse Rate 85 12/06/17 17:03 Respiratory Rate 20 12/06/17 15:50 Blood Pressure 149/69 H 12/06/17 15:40 Pulse Oximetry 95 12/06/17 15:50 Telemetry Rhythm: Sinus Rhythm Height/Weight/BMI: Height 5 ft 7 in Weight 74.4 kg Body Mass Index 26.6 - Constitutional Present: no acute distress, cooperative - Routine HEENT Exam Head: Present: normocephalic, atraumatic Eye: Present: EOMI, PERRL, conjunctivae pink. Absent: conjunctival icterus, scleral injection ENT: Present: mucous membranes moist, oropharynx clear, nares patent - Routine Neck Exam Present: supple. Absent: JVD, carotid bruit, lymphadenopathy, thyromegaly - Routine Chest/Breast/Axilla Exam Chest wall: Absent: tenderness Axillae: Absent: lymphadenopathy - Routine Respiratory Exam Present: dyspnea. Absent: accessory muscle use, rales - Routine Cardiovascular Exam Present: RRR. Absent: S3, S4 - Routine Abdominal Exam Present: soft, normoactive bowel sounds, non distended, non tender - Routine Extremities Exam Absent: cyanosis, clubbing, edema - Routine Skin Exam Present: intact. Absent: cyanosis, erythema, mottling, petechiae, urticaria, jaundice - Routine Neurological Exam Present: alert, oriented X3, CN II-XII intact - Routine Psychiatric Exam Present: normal affect, normal thought process, cooperative, good insight, good judgment. Absent: depressed, anxious Internal Medicine Results - Labs CBC & Chem 7: 12/06/17 04:21 12/06/17 16:09 Labs: Short CBC 12/06/17 Range/Units 04:21 WBC 27.0 H* D (4.5-11.0) T/MM3 Hgb 8.7 L (12-16) GM/DL Hct 27.3 L (36-46) % Plt Count 390 (130-400) T/MM3 BMP 12/06/17 16:09 Sodium 142 Potassium 4.2 Chloride 103 Carbon Dioxide 25 BUN 47.0 H D Creatinine 1.5 H D Glucose 143 H Calcium 9.4 D Cardiac Enzymes 12/06/17 Range/Units 04:21 Troponin I < 0.012 (0-0.12) ng/ml Progress Note-A&P - Time Spent With Patient Total time spent is greater than 50% in coordination of care (as documented) at patient's floor/unit and/or counseling patient: greater than 35 minutes (1) Respiratory distress, acute Status: Acute Assessment and plan: Improving with the addition of Solu-Medrol. Today is the first day she did not have crackles throughout her chest examination. 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 Current Visit: Yes (3) Acute on chronic congestive heart failure Status: Acute Current Visit: Yes (4) Pleural effusion Status: Acute Current Visit: Yes (5) Leukocytosis Status: Acute Assessment and plan: Worsened with the addition of Solu-Medrol Current Visit: Yes (6) Coronary artery disease Status: Chronic Current Visit: Yes (7) Hypertension Status: Chronic Current Visit: Yes (8) Anemia Status: Acute Assessment and plan: Consider transfusion Current Visit: Yes Hospital Course Summary Disclaimer: The visit summary below is not to be considered part of the above Progress Note. Hospital Course: Patient is improving on IV Solu-Medrol. I will decrease her dose starting tomorrow. I will also Back her antibiotics. 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
[2017-12-06] MEDS: ATORVASTATIN 40 MG TABLET PO SCH (20:04)
[2017-12-07] MEDS: METHYLPREDNISOLONE SOD SUCC 125mg/2ml INJECTION IVP SCH ×4 (03:27→22:12)
[2017-12-07] MEDS: PANTOPRAZOLE 40 MG TABLET PO SCH (06:20)
[2017-12-07] MEDS: ALBUTEROL/IPRATROPIUM 2.5mg-0.5mg/3ml NEB AEROSOL SCH ×4 (07:28→19:36)
[2017-12-07] MEDS: RANITIDINE 150 MG TABLET PO SCH ×2 (10:00→17:58)
--- NOTE | 2017-12-07 14:51 | Progress Note ---
- Date 12/07/17 Subjective: Dr. Galarza covering for Dr. Orozco The patient was seen this afternoon in her room. She states she does not feel short of breath at rest. She still has some shortness of breath with exertion. She states she has not urinated as much as normal. She had some cramps in her right calf last night but that is gone now. She denies any chest pain or abdominal pain. She states her appetite is not very good and she is eating smaller amounts. She is currently on a fluid restriction. She denies any nausea , vomiting, diarrhea or constipation. Objective Vital signs: Temperature 98.6 F 12/07/17 07:25 Pulse Rate 82 12/07/17 07:25 Respiratory Rate 14 12/07/17 11:27 Blood Pressure 151/74 H 12/07/17 07:25 Pulse Oximetry 94 12/07/17 11:27 Height/Weight/BMI: Height 1.7 m Weight 74.6 kg Body Mass Index 26.6 Comments: Weight is 74.6 kg, down from 77 kg on admission Afebrile, heart rate 82, respirations 14, O2 sat 94% on 3 L, blood pressure 151/ 74 GEN-alert, oriented, no acute distress HEENT-oropharynx is moist NECK-neck is supple CV-regular rate and rhythm CHEST-faint crackles bilaterally, no wheezing ABD-soft, nontender with positive bowel sounds -no Jay EXT-no edema NEURO-no focal deficits SKIN-warm and dry Results - Labs CBC & Chem 7: 12/07/17 04:36 12/07/17 04:36 Labs: BNP is 19,900 which is up from 15,000 - Impressions Chest x-ray today on my read shows no significant change from 12/05/2017. 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 Congestive heart failure with global hypokinesis and ejection fraction of 45%- patient diuresed with Bumex, now based on lab work she does look a little dry Acute kidney injury on chronic kidney disease-creatinine is 1.6 up from 1.5 yesterday and 1.1 the day prior Paroxysmal atrial fibrillation-currently in sinus rhythm, not anticoagulated at this time Hypertension-on metoprolol, torsemide is on hold Pulmonary hypertension with PA pressure of 62 Anemia-stable Leukocytosis-present on admission, but increased after steroids initiated Plan Amiodarone was discontinued regarding pulmonary fibrosis, possible amiodarone toxicity. Steroids were initiated. Continue breathing treatments and oxygen. Regarding acute kidney injury on chronic kidney disease, continue off of diuretics. Discontinue fluid restriction for now. Discontinue Naprosyn. Monitor for fluid overload off of her usual diuretics. Discontinue potassium for now while off of diuretics Increase activity as tolerated Recheck renal panel, magnesium, CBC tomorrow Discussed plans with the patient and her nurse. SCDs for DVT prophylaxis DVT Prophylaxis: SCD's GI Prophylaxis: Protonix Resuscitation Status: Do Not Resuscitate - Physician Narrative Narrative: Date: 12/07/17 Time: 1448 Hospital Course Summary Disclaimer: The visit summary below is not to be considered part of the above Progress Note. Hospital Course: Patient is improving on IV Solu-Medrol. I will decrease her dose starting tomorrow. I will also Back her antibiotics. 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
[2017-12-07] MEDS: CLOPIDOGREL 75 MG TABLET PO SCH (17:58)
[2017-12-07] MEDS: ATORVASTATIN 40 MG TABLET PO SCH (22:12)
[2017-12-08] MEDS: METHYLPREDNISOLONE SOD SUCC 125mg/2ml INJECTION IVP SCH ×2 (03:40→09:26)
[2017-12-08] MEDS: PANTOPRAZOLE 40 MG TABLET PO SCH (07:11)
[2017-12-08] MEDS: ALBUTEROL/IPRATROPIUM 2.5mg-0.5mg/3ml NEB AEROSOL SCH ×4 (07:40→19:07)
[2017-12-08] MEDS: RANITIDINE 150 MG TABLET PO SCH ×2 (09:28→18:32)
--- NOTE | 2017-12-08 11:14 | XRay Report ---
INDICATION: CHF, Pneumonitis PROCEDURE: CHEST 2-VIEWS UPRIGHT (PA & LAT) Encounter: Initial COMPARISON: December 05, 2017 FINDINGS: Slight interval improvement in moderate pulmonary edema with scattered bilateral areas of airspace consolidation remaining. Small pleural effusions, right greater than left. No pneumothorax. Heart size and mediastinal contours are stable. Poststernotomy changes. Impression: Slight improvement in congestive failure with continued evidence of bilateral pneumonia or aspiration. .
--- NOTE | 2017-12-08 12:34 | Progress Note ---
- Date 12/08/17 Subjective: Dr. Galarza covering for Dr. Orozco The patient was seen today in her room. She states she's feeling better. She states she was able to sit up in a chair most of the afternoon and evening yesterday. She feels like her breathing is getting better. The phlegm in the back of her throat is now gone. Her cough is better. She still doesn't have much of an appetite. She is having normal bowel movements. She denies any abdominal pain. She does state her abdomen feels a little full. Prior to admission, she was having chest pain with activity and breathing heavily with activity, she states this has resolved. Objective Vital signs: Temperature 97.3 F 12/08/17 08:12 Pulse Rate 85 12/08/17 08:12 Respiratory Rate 16 12/08/17 11:22 Blood Pressure 145/59 H 12/08/17 08:12 Pulse Oximetry 94 12/08/17 11:22 Height/Weight/BMI: Height 1.7 m Weight 74 kg Body Mass Index 26.6 Comments: Weight is 74 kg today down from 77 kg on admission GEN-alert, oriented, no acute distress HEENT-sclera anicteric, oropharynx is moist NECK-supple CV-regular rate and rhythm CHEST-fine crackles in the right base and more so in the left base ABD-soft, nontender, nondistended with positive bowel sounds -no Jay EXT-no edema NEURO-no focal deficits SKIN-warm and dry and without rashes Results - Labs CBC & Chem 7: 12/08/17 04:07 12/08/17 04:07 Labs: Magnesium 2.4, phosphorus 3.8, calcium 9.1 Assessment and Plan Assessment and Plan: Impression Acute hypoxic respiratory failure 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 Congestive heart failure with global hypokinesis and ejection fraction of 45%- patient diuresed with Bumex, now based on lab work she does look a little dry Acute kidney injury on chronic kidney disease-creatinine 1.5 today, down from 1.6 yesterday, was 1.0 on admission Paroxysmal atrial fibrillation-currently in sinus rhythm, not anticoagulated at this time Hypertension-fair control on metoprolol, torsemide is on hold Pulmonary hypertension with PA pressure of 62 Anemia-stable Leukocytosis-present on admission, but increased after steroids initiated Plan Amiodarone was discontinued regarding interstitial pneumonitis, possible amiodarone toxicity. IV Steroids were initiated. Will discontinue Solu-Medrol and start prednisone 40 mg once daily starting today. Continue breathing treatments. Titrate down oxygen as able. Regarding acute kidney injury on chronic kidney disease, continue off of diuretics. Remain off of fluid restriction for now. Naprosyn is on hold. Encourage by mouth fluids. Recheck basic metabolic profile tomorrow. Monitor for fluid overload off of her usual diuretics. Discontinue potassium for now while off of diuretics Chest X-ray in the morning Nutritional supplement 3 times a day with meals Increase activity as tolerated CBC tomorrow Discussed plans with the patient and her nurse. SCDs for DVT prophylaxis - Physician Narrative Narrative: Date: 12/08/17 Time: 1232 Hospital Course Summary Disclaimer: The visit summary below is not to be considered part of the above Progress Note. Hospital Course: Patient is improving on IV Solu-Medrol. I will decrease her dose starting tomorrow. I will also Back her antibiotics. 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
[2017-12-08] MEDS: PredniSONE 20 MG TABLET PO SCH (14:45)
[2017-12-08] MEDS: ATORVASTATIN 40 MG TABLET PO SCH ×2 (18:32→20:47)
[2017-12-08] MEDS: CLOPIDOGREL 75 MG TABLET PO SCH (18:32)
[2017-12-09] MEDS: PANTOPRAZOLE 40 MG TABLET PO SCH (06:28)
[2017-12-09] MEDS: ALBUTEROL/IPRATROPIUM 2.5mg-0.5mg/3ml NEB AEROSOL SCH ×3 (07:22→15:20)
--- NOTE | 2017-12-09 08:28 | XRay Report ---
INDICATION: hypoxia, ?interstitial pneumonitis PROCEDURE: CHEST 2-VIEWS UPRIGHT (PA & LAT) Encounter: Initial COMPARISON: December 07, 2017 FINDINGS: Aeration of the right lung has slowly improved with extensive infiltrates remaining. Small bilateral effusions, right greater than left. No pneumothorax. Hazy airspace opacities in the left mid to lower lung [place] are stable. Heart size and mediastinal contours are unchanged. Impression: Slightly improved appearance of the right lung. .
[2017-12-09] MEDS: PredniSONE 20 MG TABLET PO SCH (08:49)
[2017-12-09] MEDS: RANITIDINE 150 MG TABLET PO SCH ×2 (08:49→17:25)
[2017-12-09 15:26] VITALS: O2SAT 95
[2017-12-09 15:57] VITALS: BP 143/65; RESP 20; TEMP 98.7
--- NOTE | 2017-12-09 16:23 | Cardiology Progress Note ---
<Rica Barroso M - Last Filed: 12/09/17 17:17> Subjective Principal diagnosis: CHF Interval history: Michelle is seen in follow up for CHF. She is up in the recliner, in no distress, states she hope to go home today, she is feeling much better. Exam Vital signs: Temperature 98.7 F 12/09/17 15:56 Pulse Rate 94 12/09/17 15:56 Respiratory Rate 20 12/09/17 15:56 Blood Pressure 143/65 H 12/09/17 15:56 Pulse Oximetry 95 12/09/17 15:56 Inpatient Medications: Generic Name Dose Route Start Last Admin Trade Name Freq PRN Reason Stop Dose Admin Albuterol/Ipratropium 3 ml 12/03/17 07:00 12/09/17 15:20 Duoneb AEROSOL 3 ml RTQID JEVON Administration Atorvastatin Calcium 40 mg 12/02/17 21:00 12/08/17 20:47 Lipitor PO 40 mg HS JEVON Administration Clopidogrel Bisulfate 75 mg 12/03/17 17:30 12/08/17 18:32 Plavix PO 75 mg 1730 JEVON Administration Fentanyl 12 mcg 12/03/17 09:00 12/09/17 08:51 Duragesic Patch TD 12 mcg Q3D JEVON Administration Fentanyl Citrate 1 removal 12/03/17 09:00 12/06/17 09:14 Duragesic Patch Removal TD 1 removal Q3D JEVON Administration Metoprolol Tartrate 25 mg 12/03/17 17:30 12/09/17 08:50 Lopressor PO 25 mg 0800,1730 JEVON Administration Naproxen 500 mg 12/03/17 17:30 12/06/17 18:05 Naprosyn 500 Mg PO 500 mg 0900,1730 JEVON Administration Pantoprazole Sodium 40 mg 12/03/17 06:30 12/09/17 06:28 Protonix Tab PO 40 mg ACB JEVON Administration Prednisone 40 mg 12/08/17 12:31 12/09/17 08:49 Deltasone 20 Mg PO 40 mg WB JEVON Administration Ranitidine HCl 150 mg 12/03/17 17:30 12/09/17 08:49 Zantac PO 150 mg 0900,1730 JEVON Administration Sodium Chloride 500 ml 12/02/17 19:56 12/06/17 04:02 Normal Saline IV 500 ml PRN PRN Administration Discontinued Medications Generic Name Dose Route Start Last Admin Trade Name Freq PRN Reason Stop Dose Admin Amiodarone HCl 200 mg 12/03/17 09:00 12/05/17 08:40 Pacerone PO 200 mg DAILY JEVON Administration Amitriptyline HCl 10 mg 12/02/17 21:00 12/05/17 21:26 Elavil PO 10 mg HS JEVON Administration Bumetanide 2 mg 12/02/17 13:30 12/06/17 13:34 Bumex 2.5 Mg/10 Ml Inj IVP 2 mg Q8H JEVON Administration Clopidogrel Bisulfate 75 mg 12/02/17 20:00 12/02/17 20:19 Plavix PO 75 mg PM JEVON Administration Clopidogrel Bisulfate 75 mg 12/03/17 17:30 Plavix PO PM JEVON Cefepime HCl 2 gm/ Sodium 100 mls @ 200 mls/hr 12/02/17 16:21 12/02/17 17:55 Chloride IV 12/02/17 16:50 Infused O ONE Infusion Cefepime HCl 1 gm/ Sodium 100 mls @ 200 mls/hr 12/03/17 00:30 12/06/17 17:29 Chloride IV Infused Q8H JEVON Infusion Vancomycin HCl 1,000 mg/ 250 mls @ 250 mls/hr 12/02/17 16:30 12/06/17 18:30 Sodium Chloride IV Infused Q12H JEVON Infusion Methylprednisolone Sodium Succinate 125 mg 12/04/17 17:15 12/06/17 20:04 Solu-Medrol IVP 12/07/17 02:55 125 mg Q6HR JEVON Administration Methylprednisolone Sodium Succinate 62.5 mg 12/07/17 03:00 12/08/17 09:26 Solu-Medrol IVP 62.5 mg Q6HR JEVON Administration Metoprolol Tartrate 25 mg 12/02/17 21:00 12/03/17 08:32 Lopressor PO 25 mg Q12HR JEVON Administration Morphine Sulfate 2 mg 12/06/17 13:42 12/06/17 14:45 Morphine Sulfate Inj IVP 12/06/17 13:43 2 mg O ONE Administration Naproxen 500 mg 12/02/17 20:38 12/02/17 20:40 Naprosyn 500 Mg PO 500 mg BID PRN Administration Pain Naproxen 500 mg 12/02/17 21:00 12/03/17 08:33 Naprosyn 500 Mg PO 500 mg BID JEVON Administration Potassium Chloride 20 meq 12/02/17 16:00 12/06/17 18:04 K-Dur 10 Meq Tablet PO 20 meq Q8H JEVON Administration Potassium Chloride 20 meq 12/07/17 08:00 Micro-K 10 Meq Capsule PO WB JEVON Ranitidine HCl 150 mg 12/02/17 21:00 12/03/17 08:29 Zantac PO 150 mg BID JEVON Administration - Constitutional no acute distress, well nourished, cooperative - Routine HEENT Exam Head: Present: normocephalic ENT: Present: mucous membranes moist - Routine Neck Exam Absent: JVD, carotid bruit - Routine Chest/Breast/Axilla Exam Chest wall: Absent: tenderness - Routine Respiratory Exam Present: diminished air movement. Absent: dyspnea, rales, wheezes - Routine Cardiovascular Exam Present: RRR, murmur (I/) - Routine Abdominal Exam Present: soft, non tender - Routine Extremities Exam Present: no edema - Routine Skin Exam Present: intact, dry, warm - Routine Neurological Exam Present: alert, oriented X3 - Routine Psychiatric Exam Present: normal affect, normal thought process Results 12/09/17 04:58 12/09/17 04:58 CBC 12/09/17 Range/Units 04:58 WBC 24.1 H (4.5-11.0) T/MM3 RBC 3.40 L (4.00-5.20) M/MM3 Hgb 9.3 L (12-16) GM/DL Hct 29.0 L (36-46) % Plt Count 423 H (130-400) T/MM3 Neut # (Auto) Not performed Lymph # (Auto) Not performed [place] # (Auto) Not performed Eos # (Auto) Not performed Baso # (Auto) Not performed Comprehensive Metabolic Panel 12/09/17 Range/Units 04:58 Sodium 141 (136-146) MEQ/L Potassium 4.0 (3.6-5) MEQ/L Chloride 105 (98-107) MEQ/L Carbon Dioxide 26 (22-30) MEQ/L BUN 53.0 H* (7-17) MG/DL Creatinine 1.4 H D (0.7-1.2) mg/dL Glucose 109 (65-110) MG/DL Calcium 9.0 (8.4-10.2) MG/DL Intake and Output 12/09/17 12/09/17 12/09/17 06:59 14:59 22:59 Intake Total 1100 / 1100 240 / 240 450 / 450 Balance 1100 / 1100 240 / 240 450 / 450 Intake: Oral 1100 / 1100 240 / 240 450 / 450 Other: Urine Appearance Clear Urine Color Yellow Urine Odor Normal # Voids 1 Weight 164 lb 3.91 oz Patient Weight 12/10/17 06:59 Weight 164 lb 3.91 oz - Imaging and Cardiology Imaging & Cardiology Narrative: Date of Exam: 12/09/17 Ordering Provider: Meghna Galarza MD Type of Exam(s): XR chest 2V Reason for Exam(s): hypoxia, ?interstitial pneumonitis INDICATION: hypoxia, ?interstitial pneumonitis PROCEDURE: CHEST 2-VIEWS UPRIGHT (PA & LAT) Encounter: Initial COMPARISON: December 07, 2017 FINDINGS: Aeration of the right lung has slowly improved with extensive infiltrates remaining. Small bilateral effusions, right greater than left. No pneumothorax. Hazy airspace opacities in the left mid to lower lung wilson are stable. Heart size and mediastinal contours are unchanged. Impression: Slightly improved appearance of the right lung. 12/09/17 17:19 Assessment and Plan - Assessment and Plan (1) Hypoxia Status: Acute (2) Acute on chronic congestive heart failure Status: Acute (3) Pleural effusion Status: Acute (4) Leukocytosis Status: Acute (5) Coronary artery disease Status: Chronic (6) Hypertension Status: Chronic (7) Anemia Status: Acute (8) PAF (paroxysmal atrial fibrillation) Status: Chronic - Assessment and Plan 12/05/17 A/C CHF: echo to determine type. - BNP: 87000 - CXR: right sided consolidation - symptoms: SOB, and worsening PRADO. no edema now. Laying flat in bed. - Receiving Bumex 2mg q 8hrs for good U/O. On 12/04 U/O was 2150. On 12/05 U /O 1400 so far. but cont to have SOB and PRADO. - Monitor I/O wts, lytes - ok and renal function - Cr and BUN ok. - likely due to pleural infiltrates. CAD Hx CABG - last heart cath: 50% CAD in 1 vessel per pt report. I will look up heart cath at [facility] and fax. - cont ASA and Plavix, unless we start anticoagulation for A-fib. Chest pain - tightness around chest with deep breaths after PRADO after walking. - ECG: no acute ischemia - 12/02 trop neg - check trop in am - unlikely cardiac. PAF - In SR since admit. - cont amiodarone. consider other anticoagulation - she does not have prescription insurance. can not afford Xarelto. HTN - cont metoprolol Leukocytosis - possible pneumonia, UTI. on ABX Acute resp distress and hypoxia - On 2LNC. started steroids per Dr. Diaz. DSLD - cont statin and CoQ10 Chronic back pain- cont pain meds per Dr. Diaz. 12/06/17 BMP and Mag please Telemetry please (remains sinus but stopped Amiodarone) 12/09/17 Remains in SR on Telemetry - Much improved, ready for discharge soon Hospital Course Summary Disclaimer: The visit summary below is not to be considered part of the above Progress Note. Hospital Course: Patient is improving on IV Solu-Medrol. I will decrease her dose starting tomorrow. I will also Back her antibiotics. 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 <Gurwinder Whaley - Last Filed: 12/25/17 12:42> Exam Vital signs: Temperature 98.7 F 12/09/17 15:56 Pulse Rate 96 12/09/17 16:00 Respiratory Rate 20 12/09/17 15:56 Blood Pressure 143/65 H 12/09/17 15:56 Pulse Oximetry 95 12/09/17 15:56 Inpatient Medications: Discontinued Medications Generic Name Dose Route Start Last Admin Trade Name Freq PRN Reason Stop Dose Admin Albuterol/Ipratropium 3 ml 12/03/17 07:00 12/09/17 15:20 Duoneb AEROSOL 3 ml RTQID JEVON Administration Amiodarone HCl 200 mg 12/03/17 09:00 12/05/17 08:40 Pacerone PO 200 mg DAILY JEVON Administration Amitriptyline HCl 10 mg 12/02/17 21:00 12/05/17 21:26 Elavil PO 10 mg HS JEVON Administration Atorvastatin Calcium 40 mg 12/02/17 21:00 12/08/17 20:47 Lipitor PO 40 mg HS JEVON Administration Bumetanide 2 mg 12/02/17 13:30 12/06/17 13:34 Bumex 2.5 Mg/10 Ml Inj IVP 2 mg Q8H JEVON Administration Clopidogrel Bisulfate 75 mg 12/02/17 20:00 12/02/17 20:19 Plavix PO 75 mg PM JEVON Administration Clopidogrel Bisulfate 75 mg 12/03/17 17:30 Plavix PO PM JEVON Clopidogrel Bisulfate 75 mg 12/03/17 17:30 12/09/17 17:24 Plavix PO 75 mg 1730 JEVON Administration Fentanyl 12 mcg 12/03/17 09:00 12/09/17 08:51 Duragesic Patch TD 12 mcg Q3D JEVON Administration Fentanyl Citrate 1 removal 12/03/17 09:00 12/09/17 16:30 Duragesic Patch Removal TD 1 removal Q3D JEVON Administration Cefepime HCl 2 gm/ Sodium 100 mls @ 200 mls/hr 12/02/17 16:21 12/02/17 17:55 Chloride IV 12/02/17 16:50 Infused O ONE Infusion Cefepime HCl 1 gm/ Sodium 100 mls @ 200 mls/hr 12/03/17 00:30 12/06/17 17:29 Chloride IV Infused Q8H JEVON Infusion Vancomycin HCl 1,000 mg/ 250 mls @ 250 mls/hr 12/02/17 16:30 12/06/17 18:30 Sodium Chloride IV Infused Q12H JEVON Infusion Methylprednisolone Sodium Succinate 125 mg 12/04/17 17:15 12/06/17 20:04 Solu-Medrol IVP 12/07/17 02:55 125 mg Q6HR JEVON Administration Methylprednisolone Sodium Succinate 62.5 mg 12/07/17 03:00 12/08/17 09:26 Solu-Medrol IVP 62.5 mg Q6HR JEVON Administration Metoprolol Tartrate 25 mg 12/02/17 21:00 12/03/17 08:32 Lopressor PO 25 mg Q12HR JEVON Administration Metoprolol Tartrate 25 mg 12/03/17 17:30 12/09/17 17:24 Lopressor PO 25 mg 0800,1730 JEVON Administration Morphine Sulfate 2 mg 12/06/17 13:42 12/06/17 14:45 Morphine Sulfate Inj IVP 12/06/17 13:43 2 mg O ONE Administration Naproxen 500 mg 12/02/17 20:38 12/02/17 20:40 Naprosyn 500 Mg PO 500 mg BID PRN Administration Pain Naproxen 500 mg 12/02/17 21:00 12/03/17 08:33 Naprosyn 500 Mg PO 500 mg BID JEVON Administration Naproxen 500 mg 12/03/17 17:30 12/06/17 18:05 Naprosyn 500 Mg PO 500 mg 0900,1730 JEVON Administration Pantoprazole Sodium 40 mg 12/03/17 06:30 12/09/17 06:28 Protonix Tab PO 40 mg ACB JVEON Administration Potassium Chloride 20 meq 12/02/17 16:00 12/06/17 18:04 K-Dur 10 Meq Tablet PO 20 meq Q8H JEVON Administration Potassium Chloride 20 meq 12/07/17 08:00 Micro-K 10 Meq Capsule PO WB JEVON Prednisone 40 mg 12/08/17 12:31 12/09/17 08:49 Deltasone 20 Mg PO 40 mg WB JEVON Administration Ranitidine HCl 150 mg 12/02/17 21:00 12/03/17 08:29 Zantac PO 150 mg BID JEVON Administration Ranitidine HCl 150 mg 12/03/17 17:30 12/09/17 17:25 Zantac PO 150 mg 0900,1730 JEVON Administration Sodium Chloride 500 ml 12/02/17 19:56 12/06/17 04:02 Normal Saline IV 500 ml PRN PRN Administration Results 12/09/17 04:58 12/09/17 04:58 Assessment and Plan - Assessment and Plan (1) Hypoxia Status: Acute (2) Acute on chronic congestive heart failure Status: Acute (3) Pleural effusion Status: Acute (4) Leukocytosis Status: Acute (5) Coronary artery disease Status: Chronic (6) Hypertension Status: Chronic (7) Anemia Status: Acute (8) PAF (paroxysmal atrial fibrillation) Status: Chronic - Attestation Attestation Narrative: 12/25/17 12:42 Recommendation After examining the patient I agree with the above assessment. I am involved in the formulation of the patient's plan of care. Hospital Course Summary Disclaimer: The visit summary below is not to be considered part of the above Progress Note.
--- NOTE | 2017-12-09 17:21 | Discharge Summary ---
Discharge Information Date of admission: 12/03/17 16:33 Anticipated date of discharge: 12/09/17 Attending Physician: Javad Orozco DO Primary care physician: Javad Orozco DO Consults: 12/04/17 05:26 Case Management Consult [Case Management Consult] [CONS] Routine Reason For Exam: 12/04/17 16:58 Physician Consult [CONS] Routine Consulting Provider: Gurwinder Whaley Reason For Exam: SOB, Hypoxia, CHF Ordering Provider has Notified [employer]: Yes - Discharge Diagnosis (1) Respiratory distress, acute Status: Acute (2) Hypoxia Status: Acute (3) Acute on chronic congestive heart failure Status: Acute (4) Pleural effusion Status: Acute (5) Leukocytosis Status: Acute (6) Coronary artery disease Status: Chronic (7) Hypertension Status: Chronic (8) Anemia Status: Acute - Laboratory Labs: 12/09/17 04:58 12/09/17 04:58 History of Present Illness HPI: Patient was made a direct admission from the office secondary to the hypoxia and shortness of breath. She had a 7 pound weight gain in the 2 weeks prior to admission most likely secondary to decrease in her torsemide dosage. In the office, she had oxygen saturations in the low 80s. Hospital Course This is a general summary of the patient's hospital course. For more details refer to the complete medical record. Hospital course: Patient is improving on IV Solu-Medrol. I will decrease her dose starting tomorrow. I will also Back her antibiotics. 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 Time spent with patient: greater than 35 minutes Resuscitation Status: Do Not Resuscitate Discharge Plan - Med Rec/Dispo Referrals/Follow Up: Javad Orozco DO [Primary Care Provider] - 12/23/17 1:30 pm Andrew Instructions: [facility] [place] Congestive Heart Failure Prescriptions: New Torsemide [Demadex] 20 mg PO DAILY #30 tab Potassium Chloride [Klor-Con M10] 20 meq PO DAILY #60 tab.er.prt PredniSONE [Deltasone 20 mg] 40 mg PO WB #25 tab Continue Atorvastatin [Lipitor] 40 mg PO DAILY #0 Ubidecarenone [Co Q-10] 200 mg PO DAILY #0 Calcium Carb/Magnesium Oxid/D3 [Calcium Magnesium + D Tablet] 2 tab PO DAILY #0 raNITIdine HCl [Zantac] 150 mg PO BID #0 Pantoprazole Sodium 40 mg PO DAILY #0 Docusate Sodium [Colace] 1 cap PO BID #0 cap Metoprolol Tartrate 25 mg PO BIDWM #60 tab fentaNYL [Fentanyl] 1 removal TD Q3D #30 Vitamin B Complex 1 cap PO DAILY #0 fentaNYL [Fentanyl] 1 patch TOP Q3D 30 Days #10 patch Amitriptyline HCl 10 mg PO HS 30 Days #30 tab Discontinued Naproxen 500 mg PO DAILY #0 Torsemide 40 mg PO BID #0 tab Potassium Chloride 20 meq PO BID #0 Amiodarone [Pacerone] 200 mg PO DAILY 30 Days #30 tab - Disposition 01 Discharged Home, Self-Care - Dismissal Complete Discharge Instructions are:: Complete
[2017-12-09] MEDS: CLOPIDOGREL 75 MG TABLET PO SCH (17:24)
[2017-12-09 19:11] VITALS: PULSE 96
== END 2017-12-09 18:30 | disposition home health service (06) | DRG 682 ==
LOC: MED
PROVIDERS: ADMIT Internal Medicine; ATTEND Internal Medicine